=== PATIENT | female | born 1955 | race Caucasian/White ===

== ENCOUNTER → 2017-06-22 | Outpatient (CLI) | payer SELFPAY ==
[2017-06-23 13:03] LABS: BASOPHILS ABSOLUTE AUTO 0.03 K/mm3 (0.00-0.23); BASOPHILS PERCENT AUTO 1 % (0-2); EOSINOPHILS PERCENT AUTO 5 % (0-6); Hematocrit 40.1 % (33.0-51.0); Hemoglobin 13.4 g/dL (11.5-16.0); IMMATURE GRAN ABSOLUTE AUTO 0.01 K/mm3 (0.00-0.10); IMMATURE GRAN PERCENT AUTO 0 % (0-1); LYMPHOCYTES ABSOLUTE AUTO 1.49 K/mm3 (0.84-5.20); LYMPHOCYTES PERCENT AUTO 23 % (21-46); MONOCYTES ABSOLUTE AUTO 0.37 K/mm3 (0.16-1.47); MONOCYTES PERCENT AUTO 6 % (4-13); Mean Corpuscular HGB Conc 33.4 g/dL (31.5-36.5); Mean Corpuscular Volume 93 fL (80-100); Mean Platelet Volume 11.4 fL (9.1-12.4); NEUTROPHILS ABSOLUTE AUTO 4.16 K/mm3 (1.96-9.15); NEUTROPHILS PERCENT AUTO 65 % (41-73); Platelet Count 232 K/mm3 (150-400); RDW Standard Deviation 47.9 fL (35.1-46.3); Red Blood Cell Count 4.32 M/mm3 (3.80-5.20); White Blood Cell Count 6.36 K/mm3 (4.00-11.30)
[2017-06-23 15:04] LABS: Alanine Aminotransfer (ALT/SGP 33 U/L (12-78); Albumin, Blood 4.3 g/dL (3.4-5.0); Albumin/Globulin Ratio 1.3 (0.8-1.8); Alk Phos 146 U/L (50-136); Anion Gap 9 mmol/L (6-16); Aspartate Aminotrans (AST/SGOT 32 U/L (12-37); Bilirubin, Total 0.3 mg/dL (0.1-1.0); Blood Urea Nitrogen 29 mg/dL (8-24); Bun/Creatinine Ratio 29.3 (12.0-20.0); CO2, Blood 24 mmol/L (21-32); Calcium, Blood 8.8 mg/dL (8.5-10.1); Chloride, Blood 107 mmol/L (98-108); Creatinine, Blood 0.99 mg/dL (0.40-1.00); Globulin, Blood 3.4 g/dL (2.2-4.0); Glomerular Filtration Rate >60 (60-); Glucose, Blood 123 mg/dL (70-99); Potassium, Blood 3.4 mmol/L (3.5-5.5); Sodium, Blood 140 mmol/L (136-145); Total Protein, Blood 7.7 g/dL (6.4-8.2)
== END | disposition home or self-care (01) ==
LOC: LAB UCHC 16:45
PROVIDERS: Student in an Organized Health Care Education/Training Program
DX: Z01.812 Encounter for preprocedural laboratory examination (principal)
CPT/HCPCS: 80053; 85025

== ENCOUNTER 2021-02-19 07:06 | Day surgery (SDC) | payer OTHER ==
[~2021-02-19] VITALS: Ht 160 cm; Wt 71.9 kg
[~2021-02-19 07:06] MED LIST: ALBU90OI INH; Aspir 8181 MG PO; FERSU300 PO; LOSA50 PO; SERT100 PO; SYMBICORT 160-4.6 GM INH; Verapamil ER100 MG PO
[2021-02-19] MEDS ORDERED: TRELEGY ELLIPT1 EAC1 INH (07:43)
--- NOTE | 2021-02-19 09:29 | NUR ---
02/19/21 0929 Abdirashid Patel PATIENT DETERMINED TO BE ASA APPROPRIATE FOR PROPOFOL SEDATION PRIOR TO START OF PROCEDURE BY DR. BOYER. Bite Block Placed. 3-LEAD EKG REVIEWED WITH PHYSICIAN PRIOR TO START OF PROCEDURE. Patient to ENDO 1.History, Chart, Medications and Allergies reviewed before start of procedure. MONITOR INTACT WITH CONTINUOUS PULSE OXIMETRY AND INTERMITTENT BP. O2 VIA N/C INTACT THROUGHOUT SEDATION/PROCEDURE.
--- NOTE | 2021-02-19 10:45 | NUR ---
PT ABLE TO DRESS INDEPENDANTLY. RIDE HOME OUTSIDE WAITING. IV D/C'D, DRESSING APPLIED. WNL.
== END 2021-02-19 23:02 | disposition home or self-care (01) ==
LOC: ORSCMMR 07:06 → ORD 08:30 → ORSCMMR 23:02
PROVIDERS: Internal Medicine Gastroenterology
PROC: 0DBL8ZX Excision of Transverse Colon, Via Natural or Artificial Opening Endoscopic, Diagnostic (ICD-10-PCS; principal; 2021-02-19 08:30)
PROC: 0DBN8ZX Excision of Sigmoid Colon, Via Natural or Artificial Opening Endoscopic, Diagnostic (ICD-10-PCS; principal; 2021-02-19 08:30)
PROC: 0DB98ZX Excision of Duodenum, Via Natural or Artificial Opening Endoscopic, Diagnostic (ICD-10-PCS; principal; 2021-02-19 08:30)
PROC: 0DBP8ZX Excision of Rectum, Via Natural or Artificial Opening Endoscopic, Diagnostic (ICD-10-PCS; principal; 2021-02-19 08:30)
PROC: 0DB58ZX Excision of Esophagus, Via Natural or Artificial Opening Endoscopic, Diagnostic (ICD-10-PCS; principal; 2021-02-19 08:30)
PROC: 0DB78ZX Excision of Stomach, Pylorus, Via Natural or Artificial Opening Endoscopic, Diagnostic (ICD-10-PCS; principal; 2021-02-19 08:30)
DX: D50.9 Iron deficiency anemia, unspecified (principal); K21.9 Gastro-esophageal reflux disease without esophagitis; D12.5 Benign neoplasm of sigmoid colon; D12.3 Benign neoplasm of transverse colon; K64.2 Third degree hemorrhoids; K44.9 Diaphragmatic hernia without obstruction or gangrene; I10 Essential (primary) hypertension; Z86.73 Personal history of transient ischemic attack (TIA), and cerebral infarction without residual deficits; Z79.82 Long term (current) use of aspirin; Z79.899 Other long term (current) drug therapy
CPT/HCPCS: 88305; 88342; J2704; J7120

== ENCOUNTER → 2023-12-21 | Outpatient (CLI) | payer OTHER ==
[~2023-12-21] MED LIST changes: +CEPH500 PO; +TRELEGY ELLIPT1 EAC1 INH
[2023-12-29 12:47] LABS: Stool Occult Bld Immuno 1 Negative (NEGATIVE)
== END | disposition home or self-care (01) ==
LOC: LAB 12:00 → LAB SHORT 12:00
PROVIDERS: Family Medicine
DX: K92.1 Melena (principal)
CPT/HCPCS: G0328

== ENCOUNTER 2024-04-20 08:00 | Day surgery (SDC) | payer OTHER ==
[~2024-04-20] VITALS: Ht 157.5 cm; Wt 74.8 kg
[~2024-04-20 08:00] MED LIST changes: +Lactated Ringer's 1,000 ML IV ONE; +propofoL 50 ML IV ONE
[2024-04-20] MEDS ORDERED: Crestor40 MG PO (08:25)
[2024-04-20] MEDS ORDERED: Lactated Ringer's 1,000 ML IV ONE (08:59)
[2024-04-20 10:16] VITALS: BP 178/97
== END 2024-04-20 10:16 | disposition home or self-care (01) ==
LOC: ORSCSDS 08:00
PROVIDERS: Specialist
PROC: 0DBK8ZX Excision of Ascending Colon, Via Natural or Artificial Opening Endoscopic, Diagnostic (ICD-10-PCS; principal; 2024-04-20 09:00)
PROC: 0DB68ZX Excision of Stomach, Via Natural or Artificial Opening Endoscopic, Diagnostic (ICD-10-PCS; principal; 2024-04-20 09:00)
PROC: 0DB58ZX Excision of Esophagus, Via Natural or Artificial Opening Endoscopic, Diagnostic (ICD-10-PCS; principal; 2024-04-20 09:00)
DX: D50.9 Iron deficiency anemia, unspecified (principal); K44.9 Diaphragmatic hernia without obstruction or gangrene; K29.50 Unspecified chronic gastritis without bleeding; K21.00 Gastro-esophageal reflux disease with esophagitis, without bleeding; R13.10 Dysphagia, unspecified; D12.2 Benign neoplasm of ascending colon; K57.30 Diverticulosis of large intestine without perforation or abscess without bleeding; K64.8 Other hemorrhoids; Z86.0101 Personal history of adenomatous and serrated colon polyps; J44.9 Chronic obstructive pulmonary disease, unspecified; F41.9 Anxiety disorder, unspecified; I10 Essential (primary) hypertension
CPT/HCPCS: 88305; 88312; 88342; J2704; J7120

== ENCOUNTER → 2024-07-07 | Outpatient (CLI) | payer OTHER ==
[~2024-07-07] MED LIST changes: +Crestor40 MG PO; -Lactated Ringer's 1,000 ML IV ONE; -propofoL 50 ML IV ONE
[2024-07-07 13:46] LABS: BASOPHILS ABSOLUTE AUTO 0.05 K/mm3 (0.00-0.23); BASOPHILS PERCENT AUTO 1 % (0-2); EOSINOPHILS ABSOLUTE AUTO 0.24 K/mm3 (0.00-0.68); EOSINOPHILS PERCENT AUTO 3 % (0-6); Hematocrit 48.8 % (33.0-51.0); Hemoglobin 15.8 g/dL (11.5-16.0); IMMATURE GRAN ABSOLUTE AUTO 0.03 K/mm3 (0.00-0.10); IMMATURE GRAN PERCENT AUTO 0 % (0-1); LYMPHOCYTES PERCENT AUTO 16 % (21-46); MONOCYTES ABSOLUTE AUTO 0.47 K/mm3 (0.16-1.47); MONOCYTES PERCENT AUTO 5 % (4-13); Mean Corpuscular HGB 31.1 pg (26.0-34.0); Mean Corpuscular HGB Conc 32.4 g/dL (31.5-36.5); Mean Corpuscular Volume 96 fL (80-100); Mean Platelet Volume 11.2 fL (9.1-12.4); NEUTROPHILS PERCENT AUTO 75 % (41-73); Platelet Count 252 K/mm3 (150-400); RDW Coefficient Variation 13.1 % (11.7-14.2); RDW Standard Deviation 46.7 fL (35.1-46.3); Red Blood Cell Count 5.08 M/mm3 (3.80-5.20); White Blood Cell Count 8.89 K/mm3 (4.00-11.30)
[2024-07-07 15:21] LABS: Albumin, Blood 4.2 g/dL (3.4-5.0); Albumin/Globulin Ratio 0.9 (0.8-1.8); Bilirubin, Total 0.7 mg/dL (0.1-1.0); Bun/Creatinine Ratio 23.7 (12.0-20.0); Calcium, Blood 9.5 mg/dL (8.5-10.1); Creatinine, Blood 0.84 mg/dL (0.40-1.00); Globulin, Blood 4.5 g/dL (2.2-4.0); Potassium, Blood 3.7 mmol/L (3.5-5.5); Total Protein, Blood 8.7 g/dL (6.4-8.2)
== END | disposition home or self-care (01) ==
LOC: LAB SHORT 13:23 → LAB 13:23
PROVIDERS: Nurse Practitioner Family
DX: M79.604 Pain in right leg (principal)
CPT/HCPCS: 80053; 85025; 85379

== ENCOUNTER 2024-07-14 16:24 | Emergency (ER) | payer OTHER ==
[~2024-07-14] VITALS: Ht 160 cm; Wt 81.7 kg
[2024-07-14 16:53] VITALS: BP 156/118
[2024-07-14] MEDS ORDERED: Acetaminophen 500 MG Tab PO ONE (18:00)
[2024-07-14] MEDS ORDERED: Ibuprofen 600 MG Tab PO ONE (18:00)
== END 2024-07-14 21:12 | disposition home or self-care (01) ==
LOC: ER 16:24
DX: S89.92XA Unspecified injury of left lower leg, initial encounter (principal); S50.311A Abrasion of right elbow, initial encounter; W19.XXXA Unspecified fall, initial encounter; Z88.0 Allergy status to penicillin; Z79.899 Other long term (current) drug therapy; Z79.82 Long term (current) use of aspirin; I10 Essential (primary) hypertension; K21.9 Gastro-esophageal reflux disease without esophagitis
CPT/HCPCS: 29505; 73562-LT; 99283-25; A9270

== ENCOUNTER 2025-02-27 08:12 | Day surgery (SDC) | payer OTHER ==
[~2025-02-27] VITALS: Ht 157.5 cm; Wt 76.2 kg
[2025-02-27] VITALS (17 sets, daily range): BP systolic 112–185; BP diastolic 70–98
[~2025-02-27 08:12] MED LIST changes: +CeFAZolin Sodium 2,000 MG in NS 100 ML IV SCH; +Chlorhexidine Mouth Care 15 ML UDC MT SCH; -Crestor40 MG PO; +LOSA25 PO; -LOSA50 PO; +Prilosec10 M1 PO; +ROSUVASTATIN CA10 MG PO; +Ropivacaine 0.5% HCl/Pf 123.125 MG,EPINEPHrine HCL 0.25 MG,Ketorolac Tromethamine 15 MG... INFIL SCH; +Tranexamic Acid 100 ML IV SCH
--- NOTE | 2025-02-27 08:53 | NUR ---
Ambulatory in Day Surgery History, Chart, Medications and Allergies reviewed before start of procedure. Patient States Post-Procedure ride home has been arranged. Patient States Post-Procedure ride home has been arranged.
[2025-02-27] MEDS ORDERED: ALBU90OI INH (09:32)
[2025-02-27] MEDS ORDERED: HYDROmorphone HCl/Pf 1MG SYR IV PRN ×2 (09:35→10:45)
[2025-02-27] MEDS ORDERED: TRELEGY ELLIPT1 EACH INH (09:36)
[2025-02-27] MEDS ORDERED: Metoclopramide HCl 5MG / ML 2ML Vial IV PRN (09:40)
[2025-02-27] MEDS ORDERED: Magnesium Hydroxide Conc 10 ML UDC PO PRN (09:40)
[2025-02-27] MEDS ORDERED: Ondansetron HCl 2 MG / ML 2ML Vial IV PRN ×2 (09:40→10:30)
[2025-02-27] MEDS ORDERED: Midazolam HCl 1MG / ML 2ML Vial ONE (09:41)
[2025-02-27] MEDS ORDERED: FentaNYL Citrate 50 MCG/ML 2 ML Injection ONE (09:41)
[2025-02-27] MEDS ORDERED: Formoterol/Mometasone MDI 5/100 mcg 13 GM INH SCH (09:45)
[2025-02-27] MEDS ORDERED: Ketorolac Tromethamine 30mg Vial ONE (10:11)
[2025-02-27] MEDS ORDERED: Dexamethasone Sod Phos 10 MG/ML 1ML VIAL ONE (10:11)
--- NOTE | 2025-02-27 10:29 | NUR ---
02/27/25 1029 [place],Yumiko SPINAL BLOCK COMPLETED BY UPON ENTRY TO OR.
[2025-02-27] MEDS ORDERED: Albuterol 2.5 MG/3 ML VIAL INH PRN (10:45)
[2025-02-27] MEDS ORDERED: FentaNYL Citrate 50 MCG/ML 2 ML Injection IV PRN (10:45)
[2025-02-27] MEDS ORDERED: Ondansetron HCl 2 MG / ML 2ML Vial ONE (10:52)
[2025-02-27] MEDS ORDERED: HYDROmorphone HCl/Pf 1MG SYR ONE (10:52)
[2025-02-27] MEDS ORDERED: Phenylephrine HCl 100 MCG/ML-NS 10MLSYR (1MG/10ML) ONE (10:58)
[2025-02-27] MEDS ORDERED: Albuterol 2.5 MG/3 ML VIAL ONE (11:35)
[2025-02-27] MEDS ORDERED: Ketorolac Tromethamine 15mg Vial IV SCH (12:00)
--- NOTE | 2025-02-27 12:05 | NUR ---
ARRIVAL TO SURGICAL FLOOR ADMITTED FOR L TKA. PT LETHARGIC, BUT EASILY AROUSABLE TO VERBAL STIMULI. FOLLOWS COMMANDS. VSS, HRR, WHEEZES ASCULTATED ON EXHALATION w/EPISODES OF STRONG COUGH. CONTINOUS BIOX IN PLACE. ENCOURAGED FREQUENT COUGH & DEEP BREATHING. STATES NO PAIN. INCISION SITE w/TEFLA, TEGADERM & CAMRYN WRAP, C/D/I. SNACKS AND DRINKS GIVEN, FAMILY AT BEDSIDE.
[2025-02-27] MEDS ORDERED: ASPI81CH PO (12:22)
[2025-02-27] MEDS ORDERED: CeFAZolin Sodium 2,000 MG in NS 100 ML IV SCH (16:00)
--- NOTE | 2025-02-27 17:28 | NUR ---
SHIFT SUMMARY ADMITTED ON 02/27 FOR L TKA. A&O x4, VSS, HRR. HX, COPD - BILATERAL WHEEZING AUSCULTATED ON EXHALATION, IMPROVED w/INCREASED WAKEFULLNESS. INCISION SITE w/TEFLA, TEGADERM & CAMRYN WRAP, C/D/I. INCREASED ALERTNESS THIS EVENING, ABLE TO STAND & TRANSFER TO CHAIR w/1 PERSON ASSIST. UNABLE TO WORK w/THERAPY DUE TO LETHARGY. VOIDED SUCCESSFULLY. TOLERATING REGULAR DIET WELL. CALL LIGHT IN REACH, FAMILY @ BEDSIDE T/O AFTERNOON.
--- NOTE | 2025-02-27 19:30 | NUR ---
ASSUMED CARE ASSUMED CARE OF PATIENT. PT IS POD 0 LEFT TKA, DRESSING/CAMRYN WRAP AND POLAR PACK CDI. PT DENIES SOB, CP, N/T OR PAIN. TOLERATING AMB WITH FWW, GB, SBA. JOSIE PO INTAKE. IV INFUSING PER ORDERS. IS A/OX4. CURRENTLY RESTING BED VISITING WITH DAUGHTER. HAS CALL LIGHT IN REACH.
[2025-02-28] VITALS (9 sets, daily range): BP systolic 140–193; BP diastolic 69–104
--- NOTE | 2025-02-28 05:02 | NUR ---
SHIFT SUMMARY POD 1 S/P LEFT TKA. DRESSING/CAMRYN WRAP CDI, POLAR PACK AND SCDS IN PLACE. PAIN AND EPISODES OF HTN MANAGED PER EMAR. AMBULATING TO BATHROOM WITH FWW, GB, SBA. IS VOIDING. JOSIE SMALL AMOUNT OF PO, DENIES N/V. IVF INFUSING PER ORDERS. PT CURRENTLY RESTING IN BED WITH CALL LIGHT IN REACH, EYES CLOSED AND RESP EVEN/UNLABORED. PLAN TO WORK WITH THERAPY TODAY AND D/C HOME. WILL GIVE REPORT TO ONCOMING RN.
[2025-02-28 06:56] LABS: BASOPHILS ABSOLUTE AUTO 0.03 K/mm3 (0.00-0.23); BASOPHILS PERCENT AUTO 0 % (0-2); EOSINOPHILS ABSOLUTE AUTO 0.01 K/mm3 (0.00-0.68); EOSINOPHILS PERCENT AUTO 0 % (0-6); Hematocrit 34.9 % (33.0-51.0); Hemoglobin 11.5 g/dL (11.5-16.0); IMMATURE GRAN ABSOLUTE AUTO 0.06 K/mm3 (0.00-0.10); IMMATURE GRAN PERCENT AUTO 0 % (0-1); LYMPHOCYTES ABSOLUTE AUTO 1.08 K/mm3 (0.84-5.20); LYMPHOCYTES PERCENT AUTO 7 % (21-46); MONOCYTES ABSOLUTE AUTO 1.00 K/mm3 (0.16-1.47); MONOCYTES PERCENT AUTO 6 % (4-13); Mean Corpuscular HGB Conc 33.0 g/dL (31.5-36.5); Mean Corpuscular Volume 94 fL (80-100); NEUTROPHILS ABSOLUTE AUTO 13.57 K/mm3 (1.96-9.15); NEUTROPHILS PERCENT AUTO 86 % (41-73); NRBC ABSOLUTE 0.00 K/mm3 (0.00-0.02); NRBC Auto 0.0 /100 WBC (0.0-0.2); Platelet Count 181 K/mm3 (150-400); RDW Coefficient Variation 14.2 % (11.7-14.2); RDW Standard Deviation 47.8 fL (35.1-46.3)
[2025-02-28 07:04] LABS: Anion Gap 8.0 mmol/L (3-11); Blood Urea Nitrogen 19.0 mg/dL (8-24); CO2, Blood 24.0 mmol/L (21-32); Calcium, Blood 8.5 mg/dL (8.5-10.1); Chloride, Blood 110.0 mmol/L (98-108); Creatinine, Blood 1.04 mg/dL (0.40-1.00); Glucose, Blood 130.0 mg/dL (70-99); Potassium, Blood 3.7 mmol/L (3.5-5.5); Sodium, Blood 138.0 mmol/L (136-145)
--- NOTE | 2025-02-28 11:22 | NUR ---
ASSUMED CARE OF PT @0700 AXO4. VSS. VOIDING WELL. TOELRATED BREAKFAST WLL. AMBULATED TO BATHROOM WITH SBA USING FWW/GAIT BELT. PAIN MEDS PER EMAR ADMINISTERED. PRINEO DRESSING CDI. KNEE RE ACEWRAPPED. ICE IN PLACE. IV PULLED. DC INSTRUCTIONS PROVIDED. PT WITH HTN THIS MORNING - TREATED WITH HOME CARIAC MEDS AND PAIN MEDS, AWAITING TO SEE OUTCOME. WILL RECHECK PRIOR TO DCING.
--- NOTE | 2025-02-28 12:27 | NUR ---
DC'D @1225 RECHECKED BP - STABLE. FAMILY IN ROOM. EDUCATED, BELONGINGS WITH PT. DRESSING CDI. PT WHEELED OUT OF ROOM @1225 AND TRANSFERRED INTO CAR.
== END 2025-02-28 12:21 | disposition home or self-care (01) ==
LOC: SURS 08:12 → ORSCMMR 08:12 → ORD 09:15 → SURS 12:05 → ORSCMMR 12:05 → SURS 23:51 → ORSCMMR 02-28 12:21
PROVIDERS: Orthopaedic Surgery
PROC: 0SRD0JA Replacement of Left Knee Joint with Synthetic Substitute, Uncemented, Open Approach (ICD-10-PCS; principal; 2025-02-27 10:15)
DX: M17.12 Unilateral primary osteoarthritis, left knee (principal); S83.512A Sprain of anterior cruciate ligament of left knee, initial encounter; I10 Essential (primary) hypertension; K21.9 Gastro-esophageal reflux disease without esophagitis; E78.5 Hyperlipidemia, unspecified; Z86.73 Personal history of transient ischemic attack (TIA), and cerebral infarction without residual deficits; Z79.899 Other long term (current) drug therapy
CPT/HCPCS: 36415; 73560-LT; 80048; 85025; 94640; 94664; 94760; 97110; 97162; 97530; A9270; C1776; J0166; J0690; J0735; J1100; J1171; J1885; J2250; J2371; J2405; J2704; J2795; J3010; J7120